=== PATIENT | female | born 2000 ===

== ENCOUNTER 2021-11-30 20:45 | Emergency (ER) | payer OTHER ==
[~2021-11-30] VITALS: Ht 162.6 cm; Wt 68.2 kg
[2021-11-30] MEDS ORDERED: PERTUSS(ACELL),DIPH,TET VAC/PF 0.5 ML SYRINGE IM. ONE (22:15)
[2021-11-30] MEDS ORDERED: ACETAMINOPHEN 500 MG TABLET PO ONE (22:45)
[2021-11-30 23:15] VITALS: BP 144/84
== END 2021-11-30 23:32 | disposition home or self-care (01) ==
LOC: EMS 20:49
DX: S61.215A Laceration without foreign body of left ring finger without damage to nail, initial encounter (principal); W45.8XXA Other foreign body or object entering through skin, initial encounter; Y93.89 Activity, other specified; Y92.89 Other specified places as the place of occurrence of the external cause; Y99.8 Other external cause status
CPT/HCPCS: 90471; 90715; 99283